=== PATIENT | male | born 1980 | race African-American/Black ===

== ENCOUNTER 2017-04-30 02:15 | Emergency (ER) | payer BC, OTHER ==
[~2017-04-30] VITALS: Ht 185.4 cm; Wt 100.0 kg
[~2017-04-30 02:15] MED LIST: CARV3.12 PO; CYCL5TAB PO; LEXA20TA PO
[2017-04-30 02:17] VITALS: BP 166/110; PULSE 76; RESP 16; TEMP 98.8; O2SAT 98
[2017-04-30] MEDS ORDERED: ACETAMINOPHEN/HYDROcodone 325 MG/5 MG TAB PO ONE (03:00)
[2017-04-30] MEDS ORDERED: LISINOPRIL 10 MG TAB PO ONE (03:00)
[2017-04-30] MEDS ORDERED: ACYCLOVIR 800 MG TAB PO ONE (03:00)
[2017-04-30] MEDS ORDERED: LISI10TA3 PO (03:02)
[2017-04-30] MEDS ORDERED: ACYC800T PO (03:02)
[2017-04-30] MEDS ORDERED: AMOX500T PO (03:02)
--- NOTE | 2017-04-30 03:17 | PD ---
HPI Chief Complaint: Oral / Dental Pain or Problem Time Seen by Provider: 02:48 Travel History International Travel<30 days: No Contact w/Intl Traveler<30days: No Traveled to known affect area: No History of Present Illness HPI 37-year-old black male presents emergency Department with complaints of left facial pain over last 2 days. He states that he has pain from his left ear down the outside of his face and jaw down into his mouth and around his teeth. He also has noticeable sore inside of his mouth. He denies any localizing dental pain. No fever or chills. He does state that he has general malaise and headache. He denies any difficulty swallowing. No cough, congestion, shortness of breath or wheezing. No hearing changes. 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 Blood Disorders: No Anxiety: Yes Depression: Yes Heart Rhythm Problems: No Cancer: No Cardiovascular Problems: Yes High Cholesterol: No Chest Pain: Yes Congestive Heart Failure: No Endocrine: No Gastrointestinal Disorders: No Genitourinary: No Hypertension: No Immune Disorder: No Implanted Vascular Access Dvce: No Musculoskeletal: No Neurologic: No Psychiatric: Yes Reproductive: No Respiratory: No Tetanus Vaccination: < 5 Years Past Surgical History Narrative Surgical Herniorrhaphy, testicular torsion with right testicle removal, right femur fracture with IM isabelle Abdominal Surgery: Yes (HERNIA REPAIR) Eye Surgery: Yes (L ) Genitourinary Surgery: Yes (RIGHT TESTICLE REMOVED) Other Surgery: Yes Social History Alcohol Use: Yes (VODKA FEW BOTTLES WEEKLY) Tobacco Use: Yes (1/2 PK DAILY) Substance Use: Yes (POT DAILY) Allergies-Medications (Allergen,Severity, Reaction): Coded Allergies: No Known Allergies (Verified Adverse Reaction, Unknown, 04/30/17) Reported Meds & Prescriptions Reported Meds & Active Scripts Active Amoxicillin 500 Mg Tab 500 Mg PO TID Acyclovir 800 Mg Tab 800 Mg PO TID Lisinopril 10 Mg Tab 10 Mg PO DAILY Review of Systems General / Constitutional: No: Fever Eyes: No: Photophobia, Visual changes HENT: Positive: Dental Difficulties, Earache, No: Headaches, Sore Throat, Rhinorrhea, Gingival Bleeding, Ear Discharge Cardiovascular: No: Chest Pain or Discomfort Respiratory: No: Shortness of Breath Gastrointestinal: No: Abdominal Pain Genitourinary: No: Dysuria Musculoskeletal: No: Pain Skin: No Rash Neurologic: No: Weakness Psychiatric: No: Depression Endocrine: No: Polydipsia Hematologic/Lymphatic: No: Easy Bruising Physical Exam Narrative GENERAL: Well-developed, well-nourished in no acute distress. Nontoxic appearing. HEAD: Normocephalic, atraumatic. EYES: Pupils equal round and reactive. Extraocular motions intact. No scleral icterus. No injection or drainage. ENT: TMs clear without erythema. The external auditory canals clear. Nose: clear . Posterior pharynx is pink and moist. No tonsillar edema or exudate. Uvula midline. Airway patent. Patient has a small stromatic ulcer on the left nuchal membrane. NECK: Trachea midline.Supple, nontender, moves head freely. No central bony tenderness or spasm. CARDIOVASCULAR: Regular rate and rhythm without murmurs, gallops, or rubs. RESPIRATORY: Clear to auscultation. Breath sounds equal bilaterally. No wheezes , rales, or rhonchi. GASTROINTESTINAL: Abdomen soft, non-tender, nondistended. No hepato-splenomegaly , or palpable masses. No guarding. EXTREMITIES: No clubbing, cyanosis, or edema. No joint tenderness, effusion, or edema noted. BACK: Nontender without deformity or crepitance. No flank tenderness. Data Data Last Documented VS Vital Signs Date Time Temp Pulse Resp B/P (MAP) Pulse Ox O2 Delivery O2 Flow Rate FiO2 04/30/17 02:17 98.8 76 16 166/110 (128) 98 Orders Orders Acyclovir (Zovirax) (04/30/17 03:00) Acetamin-Hydrocod 325-5 Mg (Maxwell 5-325 (04/30/17 03:00) Lisinopril (Prinivil) (04/30/17 03:00) Ed Discharge Order (04/30/17 03:03) [facility] Medical Decision Making Medical Screen Exam Complete: Yes Emergency Medical Condition: Yes Medical Record Reviewed: Yes Differential Diagnosis Differential diagnoses: CVA, Trinidad Shaw, Tovar's palsy, sinusitis, mastoiditis, dental abscess, strep throat Narrative Course Patient's exam only reveals a small ulcer on his pupil membrane on the left side. I've explained to the patient that I feel that this is most likely an early Tovar's palsy. He is given 800 mg of acyclovir by mouth, Lortab 5 mg by mouth. Is also noted that his blood pressure up and and he has been on lisinopril but he has been off it for some time now. Patient's given 10 mg of lisinopril by mouth. This is left facial pain rule out early Tovar's palsy, hypertension Diagnosis Primary Impression: left facial pain rule out Tovar's palsy Additional Impression: hypertension Patient Instructions: Narcotic given in the ED, General Instructions Additional Instructions: Rest. Monitor for facial droop or facial rash. Acyclovir, lisinopril. Continued to take 3 Advil every 6 hours. May take antibiotic if you develop dental pain or a sore throat. Follow-up with a medical doctor next 3-5 days for recheck. Med/Other Pt SpecificInfo: Prescription(s) given Scripts Amoxicillin (Amoxicillin) 500 Mg Tab 500 MG PO TID for Infection, #21 TAB 0 Refills Prov: Valeria Schaeffer MD 04/30/17 Acyclovir (Acyclovir) 800 Mg Tab 800 MG PO TID for Mgmt Viral Infection, #21 TAB 0 Refills Prov: Valeria cShaeffer MD 04/30/17 Lisinopril (Lisinopril) 10 Mg Tab 10 MG PO DAILY, #30 TAB 0 Refills Prov: Valeria Schaeffer MD 04/30/17 Disposition: 01 DISCHARGE HOME Condition: Stable Denis Ku Apr 30, 2017 03:17
== END 2017-04-30 03:46 | disposition home or self-care (01) ==
LOC: NEPD 02:15
DX: R51 Headache (principal); I10 Essential (primary) hypertension; F41.9 Anxiety disorder, unspecified; F32.9 Major depressive disorder, single episode, unspecified; F17.200 Nicotine dependence, unspecified, uncomplicated
CPT/HCPCS: 99284